=== PATIENT | female | born 1935 | race Caucasian/White ===

== ENCOUNTER 2024-05-13 16:17 | Emergency (ER) | payer MEDICARE, OTHER, SELFPAY ==
[2024-05-13 16:22] VITALS: BP 143/70
[2024-05-13 16:45] LABS: % Basophils 0.6 % (0-2); % Eosinophils 5.4 % (0-6); % Immature Granulocytes 0.3 % (0-0.5); % Lymphocytes 19.2 % (20.5-51.1); % Monocytes 9.4 % (1.7-9.3); % Neutrophils 65.1 % (42.2-75.2); Absolute Basophils 0.1 10^3/uL (0-0.2); Absolute Eosinophils 0.6 10^3/uL (0-0.7); Absolute Lymphocytes 2.1 10^3/uL (1.2-3.4); Absolute Neutrophils 7.1 10^3/uL (1.4-6.5); Hematocrit 38.9 % (37.0-47.0); Hemoglobin 12.2 g/dL (12.0-16.0); Mean Corp Hgb Conc. 31.4 g/dL (33.0-37.0); Mean Corpuscular Hgb 29.3 pg (27.0-31.0); Mean Corpuscular Volume 93.3 fL (81.0-99.0); Mean Platelet Volume 10.6 fL (7.4-10.4); Nucleated Red Blood Cells % 0 %; Platelet Count 185 10^3/uL (130-400); Red Blood Cell Count 4.17 10^6/uL (4.20-5.40); Red Cell Dist. Width 15.4 % (11.5-14.5); White Blood Cell Count 10.9 10^3/uL (4.8-10.8)
[2024-05-13 17:00] VITALS: BP 131/64
[2024-05-13 17:27] LABS: ALT (SGPT) 12 U/L (0-35); AST (SGOT) 24 U/L (14-36); Albumin 3.7 g/dl (3.5-5.0); Alkaline Phosphatase 62 U/L (38-126); Blood Urea Nitrogen 22 mg/dl (7-17); Carbon Dioxide 33 mmol/L (22-30); Chloride 100 mmol/L (98-107); Glucose 75 mg/dl (70-99); Potassium 4.9 mmol/L (3.5-5.1); Sodium 137 mmol/L (135-145); Total Bilirubin 0.5 mg/dl (0.2-1.3); eGFR > 60.00
[2024-05-13 17:35] LABS: Troponin I < 0.012 ng/ml
--- NOTE | 2024-05-13 18:17 | ED.GENMED ---
History of Present Illness
General
Chief Complaint: Chest Pain
Source: patient
Exam Limitations: none
Time Seen by Provider: 05/13/24 18:04
History of Present Illness
History of Present Illness:
89-year-old female with history of dementia speaks [place] only but currently accompanied by family who states the patient started with chest pain around 4 PM. She notes a sharp pain to the left side of her chest that is intermittent. There was no
pleuritic component. She denies shortness of breath. No cough or fever. No vomiting. She has a remote history of cardiac disease requiring a stent.
Past History
Past History
ED Past Medical History: GERD, HTN, Hypercholesterolemia and NIDDM
ED Past Surgical History: None
Social History
Tobacco: Non-smoker
Alcohol: None
Drug: None
Living: with family
Phy Exam
Physical Exam
Physical Exam:
General: Well developed female who does appear somewhat uncomfortable
HEENT: Normocephalic atraumatic
Heart: Regular rate and rhythm no murmur
Lungs: Clear no wheeze
Abdomen is soft nontender nondistended no guarding or rebound
Extremities: No cyanosis
Skin: Warm, no rash
Scores
Heart Score for Chest Pain Patients
STEMI patient?: No
History: Slightly or Non-Suspicious
ECG: Normal
Age: >/= 65 years
Risk Factors: 1 or 2 Risk Factors
Troponin: </= Normal Limit
Heart Score for Chest Pain Patients: 3
Heart Score Risk: 2.5% MACE over next 6 weeks
Course
Orders/Labs/Results
Orders:
Orders
05/13/24 16:21
Electrocardiogram (*1) Urgent
Reason for Study: Chest Pain
EKG- Treatment ONCE
05/13/24 16:37
Complete Blood Count/With Diff Urgent
05/13/24 17:04
Comprehensive Metabolic Panel Urgent
Troponin I Urgent
05/13/24 18:15
CR Chest Portable - 1 View Urgent
Comment:
Reason For Exam: chest pain
Reason Study Needs to be Portable: Unable to Transport
05/13/24 20:30
Troponin I Urgent
Abnormal Lab Results
05/13/24 05/13/24
16:37 17:04
WBC 10.9 H 10^3/uL
(4.8-10.8)
RBC 4.17 L 10^6/uL
(4.20-5.40)
MCHC 31.4 L g/dL
(33.0-37.0)
RDW 15.4 H %
(11.5-14.5)
MPV 10.6 H fL
(7.4-10.4)
Absolute Neuts (auto) 7.1 H 10^3/uL
(1.4-6.5)
Absolute Monos (auto) 1.0 H 10^3/uL
(0.1-0.6)
Lymphocytes % 19.2 L %
(20.5-51.1)
Monocytes % 9.4 H %
(1.7-9.3)
Carbon Dioxide 33 H mmol/L
(22-30)
BUN 22 H mg/dl
(7-17)
05/13/24 16:37
05/13/24 17:04
Vital Signs
Initial and Last Documented VS:
Initial Vital Signs
Pulse Resp BP Pulse Ox
88 26 143/70 99
05/13/24 16:22 05/13/24 16:22 05/13/24 16:22 05/13/24 16:22
Last Documented Vital Signs
Temp Pulse Resp BP Pulse Ox
97.6 F 82 27 131/64 98
05/13/24 16:29 05/13/24 18:00 05/13/24 17:30 05/13/24 17:00 05/13/24 18:00
MDM/Problems Addressed
Differential Diagnosis Includes:
Chest pain. Consider ACS versus pneumothorax versus PE versus musculoskeletal pain
Difficult historian secondary to language barrier and level of dementia. Portable chest x-ray pending. Initial troponin undetectable. EKG looks well without ischemic changes.
Consider repeat troponin.
*Critical Care Note
Total Time (30-74mins, 75-104mins- exclusive of procedures): Not Applicable
Update Note
Update Note:
Initial and repeat troponins undetectable. Patient's vital signs remained stable. Chest x-ray is clear. No acute abnormalities found on today's workup regarding the patient's chest discomfort. Stable for discharge back to facility
ED Attending Note
-
Portions of this chart may have been created with voice recognition software.� Occasional wrong word or��sound alike� substitutions may have occurred due to the inherent limitations of voice recognition software.
Discharge Plan
Departure
Patient Disposition: Home (Routine Discharge)
Date of Disposition: 05/13/24
Time of Disposition: 22:00
Patient with high blood pressure during this ER visit?: No
Discharge Problem:
Chest pain
Instructions: Chest Pain PCP Follow Up
Prescriptions:
No Action
donepezil [Aricept] 5 mg Tablet
10 mg PO DAILY
melatonin 3 mg Tablet
3 mg PO HS PRN (Reason: insomnia)
acetaminophen [Acetaminophen Extra Strength] 500 mg Tablet
1,000 mg PO TID PRN (Reason: mild pain)
magnesium hydroxide [Milk of Magnesia] 400 mg/5 mL Suspension
400 mg PO DAILY PRN (Reason: constipation)
levothyroxine 50 mcg Tablet
50 mcg PO DAILY
bisacodyl 10 mg Suppository
10 mg ID DAILY PRN (Reason: constipation)
pantoprazole 40 mg Tablet,Delayed Release (Dr/Ec)
40 mg PO DAILY
docusate sodium 100 mg Capsule
100 mg PO DAILY PRN (Reason: constipation)
aspirin 81 mg Tablet,Chewable
81 mg PO DAILY
rosuvastatin 20 mg Tablet
20 mg PO DAILY
duloxetine 60 mg Capsule,Delayed Release(Dr/Ec)
60 mg PO DAILY
icosapent ethyl [Vascepa] 1 gram Capsule
1 g PO 2XD
acetaminophen [Tylenol] 325 mg Tablet
650 mg PO Q4HPRN PRN (Reason: fever)
insulin glargine [Lantus U-100 Insulin] 100 unit/mL Solution
18 unit SC DAILY
valacyclovir [Valtrex] 1 gram Tablet
1,000 mg PO [id number]
Patient Comments:
take from 07/17/22-07/24/22
ondansetron HCl [Zofran] 4 mg Tablet
4 mg PO Q4HPRN PRN (Reason: nasuea)
chlorpromazine 10 mg Tablet
10 mg PO BID
hydrocortisone 1 % Cream
1 applic TOPICAL BID
Maalox 225-200 mg/5 mL Suspension
30 ml PO Q6HPRN PRN (Reason: indigestion)
divalproex [Depakote] 125 mg Tablet,Delayed Release (Dr/Ec)
125 mg PO BID
hydrocortisone 2.5 % Cream
1 applic TOPICAL [id number]
gabapentin 100 mg Capsule
100 mg PO BID
Excedrin Extra Strength 250-250-65 mg Tablet
2 tab PO DAILYPRN PRN (Reason: migraine)
insulin aspart U-100 100 unit/mL (3 mL) insulin pen
8 unit SC AC
Rx Instructions:
TID/AC
cephalexin 500 mg capsule
500 mg PO TID Qty: 21 0RF
mupirocin calcium 2 % cream
1 applic topical TID Qty: 30 1RF
Rx Instructions:
Apply to facial wounds
Referrals:
Micah Leigh MD [Family Provider] -
Activity Restrictions/Additional Instructions:
Please return here if needed. Continue current medication regimen
Interventions
Interventions:
*Risk Screen - Suicide Last Done: 05/13/24 16:23
*General Assessment Last Done: 05/13/24 16:23
*Neglect/Abuse Screening Last Done: 05/13/24 16:23
ED- Fall Risk Assessment Last Done: 05/13/24 18:14
*ED COVID-19 Vaccine History Last Done: 05/13/24 16:23
ED- Cardiac Assessment Last Done: 05/13/24 16:23
Discharge Date and Time
Print Language: [place]
[2024-05-13 21:46] LABS: Troponin I < 0.012 ng/ml
[2024-05-14 00:25] VITALS: BP 149/80
== END 2024-05-14 00:27 | disposition home or self-care (01) ==
LOC: EMR 16:17
PROVIDERS: Physician Assistant; EMERGENCY PHYSICIAN Emergency Medicine; FAMILY PHYSICIAN Internal Medicine
DX: R07.89 Other chest pain (principal); F03.90 Unspecified dementia, unspecified severity, without behavioral disturbance, psychotic disturbance, mood disturbance, and anxiety; K21.9 Gastro-esophageal reflux disease without esophagitis; I10 Essential (primary) hypertension; E78.00 Pure hypercholesterolemia, unspecified; E11.9 Type 2 diabetes mellitus without complications; Z95.5 Presence of coronary angioplasty implant and graft
CPT/HCPCS: 99283; 71045; 80053; 84484; 85025; 93005